=== PATIENT | female | born 1980 | race African-American/Black ===

== ENCOUNTER 2016-10-10 08:36 | Inpatient (IN) | payer MEDICAID ==
[2016-10-10 10:02] LABS: ABSOLUTE BASOPHILS # (AUTO) 0.1 10^3/uL (0.0-0.2); ABSOLUTE EOSINOPHILS # (AUTO) 0.4 10^3/uL (0.0-0.6); ABSOLUTE LYMPHOCYTES (AUTO) 2.3 10^3/uL (0.5-4.7); ABSOLUTE MONOCYTES (AUTO) 0.5 10^3/uL (0.1-1.4); ABSOLUTE NEUT (AUTO) 3.7 10^3/uL (1.7-8.2); BASOPHILS % (AUTO) 0.9 % (0-2); EOSINOPHILS % (AUTO) 5.8 % (0-6); HEMOGLOBIN 12.9 g/dL (12.0-15.5); HGB HCT DIFFERENCE -1.3; LYMPHOCYTES % (AUTO) 33.6 % (13-45); MEAN CORPUSCULAR HEMOGLOBIN 29.6 pg (27.0-33.4); MEAN CORPUSCULAR HGB CONC 32.2 g/dL (32.0-36.0); MEAN CORPUSCULAR VOLUME 92 fl (80-97); MONOCYTES % (AUTO) 7.2 % (3-13); RED BLOOD COUNT 4.36 10^6/uL (3.72-5.28); RED CELL DISTRIBUTION WIDTH 13.7 % (11.5-14.0); SEGMENTED NEUTROPHILS % (AUTO) 52.5 % (42-78)
[2016-10-10 10:11] LABS: ALANINE AMINOTRANSFERASE 30 U/L (9-52); ALBUMIN 4.5 g/dL (3.5-5.0); ALKALINE PHOSPHATASE 80 U/L (38-126); ANION GAP 13 (5-19); ASPARTATE AMINO TRANSFERASE 23 U/L (14-36); BILIRUBIN,DIRECT 0.2 mg/dL (0.0-0.4); BILIRUBIN,TOTAL 0.4 mg/dL (0.2-1.3); BLOOD UREA NITROGEN 11 mg/dL (7-20); CALCIUM 9.9 mg/dL (8.4-10.2); CARBON DIOXIDE 25 mmol/L (22-30); CHLORIDE 108 mmol/L (98-107); CREATININE RESULT 1.15 mg/dL (0.52-1.25); GLUCOSE 80 mg/dL (75-110); POTASSIUM 4.3 mmol/L (3.6-5.0); SODIUM 145.9 mmol/L (137-145); TOTAL PROTEIN 7.4 g/dL (6.3-8.2)
[2016-10-10 10:15] LABS: APPEARANCE,URINE CLOUDY; BILIRUBIN,URINE NEGATIVE (NEGATIVE); GLUCOSE, URINE NEGATIVE (NEGATIVE); KETONES,URINE NEGATIVE (NEGATIVE); LEUKOCYTE ESTERASE,URINE NEGATIVE (NEGATIVE); NITRITE,URINE POSITIVE (NEGATIVE); PROTEIN,URINE NEGATIVE (NEGATIVE); UROBILINOGEN,URINE NEGATIVE mg/dL (<2.0)
[2016-10-10 10:29] LABS: LIPASE 3239.1 U/L (23-300)
--- NOTE | 2016-10-10 10:45 | ER Document Report ---
ED Medical Screen (RME) - General Mode of Arrival: Ambulatory Information source: Patient TRAVEL OUTSIDE OF THE [place] IN LAST 30 DAYS: No <RIGO KLINE - Last Filed: 10/10/16 10:42> <MARCEL ROMERO - Last Filed: 10/11/16 10:23> - General Chief Complaint: Epigastric Pain Stated Complaint: HEADACHE/CHEST PAIN/COUGH Time Seen by Provider: 10/10/16 10:41 Notes: 36-year-old female presents to ED for chest pain and stomach pains 3-4 weeks. She states she has a headache off and on. States at times she feels like she has a knot in her throat. States she has been nauseated off and on but not vomiting. States she has had some diarrhea with 2 stools today. She denies any cardiac history any history of any abdominal problems. She does have a history of migraines. States she has had no fevers but she has had some chills during this episode. Patient is 145 lipase is 2239 liver enzymes are normal. Urine has positive nitrates with trace bacteria cloudy urine with specific gravity of 1.02. Will order abdominal ultrasound and has seen in the back by 1 of the physicians. I have greeted and performed a rapid initial assessment of this patient. A comprehensive ED assessment and evaluation of the patient, analysis of test results and completion of medical decision making process will be conducted by an additional ED providers. (RIGO KLINE) - Related Data Allergies/Adverse Reactions: No Known Allergies Allergy (Verified 10/10/16 08:38) Past Medical History Renal/ Medical History: Denies: Hx Peritoneal Dialysis Past Surgical History: Reports: Hx Tonsillectomy - Immunizations Immunizations up to date: Yes Hx Diphtheria, Pertussis, Tetanus Vaccination: Yes - 10/10/2011 <RIGO KLINE - Last Filed: 10/10/16 10:42> Course - Laboratory Result Diagrams: 10/10/16 09:25 10/10/16 09:25 <RIGO KLINE - Last Filed: 10/10/16 10:42> - Laboratory Result Diagrams: 10/11/16 04:38 10/11/16 04:38 <MARCEL ROMERO - Last Filed: 10/11/16 10:23> - Vital Signs Vital signs: Temp Pulse Resp BP Pulse Ox 98.3 F 64 12 108/56 L 97 10/11/16 08:00 10/11/16 08:00 10/11/16 08:00 10/11/16 08:00 10/11/16 08:00 - Laboratory Laboratory results interpreted by me: 10/10/16 10/10/16 10/10/16 09:25 09:25 09:30 Sodium 145.9 H Chloride 108 H Est GFR (Non-Af Amer) 53 L HDL Cholesterol 29 L Lipase 3239.1 H Urine Blood SMALL H Urine Nitrite POSITIVE H Doctor's Discharge <RIGO KLINE - Last Filed: 10/10/16 10:42> <MARCEL ROMERO - Last Filed: 10/11/16 10:23> - Discharge Clinical Impression: Acute pancreatitis Condition: Stable Disposition: ADMITTED INPATIENT
--- NOTE | 2016-10-10 12:37 | ER Document Report ---
ED GI/ - General Chief Complaint: Epigastric Pain Stated Complaint: HEADACHE/CHEST PAIN/COUGH Time Seen by Provider: 10/10/16 10:41 Mode of Arrival: Ambulatory Notes: The patient is a 36-year-old female, no past medical history, presents with intermittent epigastric pain for the past 2 weeks that is now constant today. She also is feeling lower right chest pain when her abdominal pain flares. She is not sure if there is a correlation with food and she has never had this before. In addition, she has a dull frontal headache and feels like there is a knot in her throat. Her headache feels similar to prior headaches. She is nauseous, but has not vomited. Denies urinary symptoms, fevers, shortness of breath, numbness, tingling, neck stiffness, blurry vision, ataxia, diarrhea or constipation TRAVEL OUTSIDE OF THE [place] IN LAST 30 DAYS: No - Related Data Allergies/Adverse Reactions: No Known Allergies Allergy (Verified 10/10/16 08:38) Past Medical History - General Information source: Patient - Social History Smoking Status: Current Every Day Smoker Chew tobacco use (# tins/day): - 30 Frequency of alcohol use: None Drug Abuse: None Family History: Reviewed & Not Pertinent Patient has suicidal ideation: No Patient has homicidal ideation: No Renal/ Medical History: Denies: Hx Peritoneal Dialysis Past Surgical History: Reports: Hx Tonsillectomy - Immunizations Immunizations up to date: Yes Hx Diphtheria, Pertussis, Tetanus Vaccination: Yes - 10/10/2011 Review of Systems - Review of Systems Notes: REVIEW OF SYSTEMS: CONSTITUTIONAL: -fevers, -chills EENT: -eye pain, -difficulty swallowing, -nasal congestion CARDIOVASCULAR: -chest pain, -syncope. RESPIRATORY: -cough, -SOB GASTROINTESTINAL: +abdominal pain, +nausea, -vomiting, -diarrhea GENITOURINARY: -dysuria, -hematuria MUSCULOSKELETAL: -back pain, -neck pain SKIN: -rash or skin lesions. HEMATOLOGIC: -easy bruising or bleeding. LYMPHATIC: -swollen, enlarged glands. NEUROLOGICAL: -altered mental status or loss of consciousness, -headache, - neurologic symptoms PSYCHIATRIC: -anxiety, -depression. ALL OTHER SYSTEMS REVIEWED AND NEGATIVE. Physical Exam - Vital signs Vitals: Temp Pulse Resp BP Pulse Ox 98.1 F 91 14 122/64 100 10/10/16 08:39 10/10/16 08:39 10/10/16 08:39 10/10/16 08:39 10/10/16 08:39 - Notes Notes: PHYSICAL EXAMINATION: GENERAL: Well-appearing, well-nourished and in no acute distress. HEAD: Atraumatic, normocephalic. EYES: Pupils equal round and reactive to light, extraocular movements intact, sclera anicteric, conjunctiva are normal. ENT: nares patent, oropharynx clear without exudates. Moist mucous membranes. NECK: Normal range of motion, supple without lymphadenopathy LUNGS: Breath sounds clear to auscultation bilaterally and equal. No wheezes rales or rhonchi. HEART: Regular rate and rhythm without murmurs ABDOMEN: Soft, moderate epigastric tenderness, normoactive bowel sounds. No guarding, no rebound. No masses appreciated. EXTREMITIES: Normal range of motion, no pitting or edema. No cyanosis. NEUROLOGICAL: Cranial nerves grossly intact. Normal speech, normal gait. Normal sensory, motor, and reflex exams. PSYCH: Normal mood, normal affect. SKIN: Warm, Dry, normal turgor, no rashes or lesions noted. Course - Re-evaluation Re-evalutation: Patient with epigastric pain and lipase around 4000. She does not drink alcohol and her right upper quadrant ultrasound does not show any evidence of gallstones. She has not seen a doctor in several years, so unsure about her triglycerides or cholesterol levels. Pain and nausea is under control with morphine and Zofran. Spoke to Dr. Peres at 1530 and will admit patient as inpatient to telemetry - Vital Signs Vital signs: Temp Pulse Resp BP Pulse Ox 98.1 F 91 14 122/64 100 10/10/16 08:39 10/10/16 08:39 10/10/16 08:39 10/10/16 08:39 10/10/16 08:39 - Laboratory Result Diagrams: 10/10/16 09:25 10/10/16 09:25 Laboratory results interpreted by me: 10/10/16 10/10/16 09:25 09:30 Sodium 145.9 H Chloride 108 H Est GFR (Non-Af Amer) 53 L Lipase 3239.1 H Urine Blood SMALL H Urine Nitrite POSITIVE H - Diagnostic Test Radiology reviewed: Image reviewed, Reports reviewed Radiology results interpreted by me: VALORIE US: NAD - EKG Interpretation by Me EKG shows normal: Sinus rhythm, [place], Intervals, QRS Complexes, ST-T Waves Discharge - Discharge Clinical Impression: Acute pancreatitis Qualifiers: Pancreatitis type: unspecified pancreatitis type Acute pancreatitis complication: unspecified Qualified Code(s): K85.90 - Acute pancreatitis without necrosis or infection, unspecified Condition: Stable Disposition: ADMITTED INPATIENT Admitting Provider: [facility] Admitted: Telemetry
[2016-10-10] MEDS ORDERED: NORMAL SALINE 1000 ML 1,000 ML IV ONE (12:50)
[2016-10-10] MEDS ORDERED: ONDANSETRON HCL INJ/PF 4 MG/2 ML SDV IV ONE (12:50)
[2016-10-10] MEDS ORDERED: MORPHINE SULFATE 10 MG/ML INJ IV ONE (12:50)
[2016-10-10] MEDS ORDERED: HYDROMORPHONE HCL INJ/PF 2 MG/ML AMPULE IV PRN (16:02)
[2016-10-10] MEDS ORDERED: DEXTROSE 5%-1/2 NORMAL SALINE 1,000 ML IV PRN (16:03)
[2016-10-10] MEDS ORDERED: ACETAMINOPHEN 325 MG TABLET PO PRN (16:03)
[2016-10-10] MEDS ORDERED: ONDANSETRON HCL INJ/PF 4 MG/2 ML SDV IV PRN (16:03)
[2016-10-10 16:29] LABS: CHOLESTEROL 128.75 mg/dL (0-200); Direct HDL 29 mg/dL (>40); TRIGLYCERIDES 80 mg/dL (<150)
[2016-10-10 16:40] LABS: DIRECT LDL 74 mg/dL (<100)
[2016-10-10 17:25] LABS: URINE BARBITURATES SCREEN NEGATIVE; URINE METHADONE SCREEN NEGATIVE; URINE OPIATES LOW NEGATIVE; URINE PHENCYCLIDINE SCREEN NEGATIVE
--- NOTE | 2016-10-10 17:48 | HISTORY AND PHYSICAL E ---
History and Physical NAME: CHELA STAPLETON : 1980 AGE: 36Y ADMITTED: 10/10/2016 ROOM: ED08 TIME OF ADMISSION: 1600 hours. TIME SPENT MANAGING PATIENT: Sixty minutes. PRIMARY CARE PROVIDER: None. CHIEF COMPLAINT: None. HISTORY OF PRESENT ILLNESS: This is a 36-year-old female with past medical history of PTSD and depression that presents to the hospital with a several-day history of abdominal pain. She has never had a prior history of pancreatitis but is diagnosed with acute pancreatitis in the emergency department. She denies alcohol use. She denies family history of pancreatitis or autoimmune condition. She denies drug use. She has never had prior bouts of pancreatitis but does have frequent episodes over the past several years, in which she gets abdominal pain almost on a monthly basis. PAST MEDICAL HISTORY: 1. PTSD. 2. Depression. PAST SURGICAL HISTORY: None. SOCIAL HISTORY: She does not drink, smoke, or use drugs reportedly. FAMILY HISTORY: Positive for diabetes, hypertension. Positive for brain and bone cancers. MEDICATIONS: 1. Rexulti. 2. Klonopin. ALLERGIES: No known drug allergies. CODE STATUS: FULL CODE STATUS. REVIEW OF SYSTEMS: She denies fevers, chills, weight loss, weight gain, fatigue, anorexia, visual disturbance, headache, hearing loss, dyspnea, cough, pleurisy, chest pain, edema, dysuria, urinary urgency, frequency, hematuria, rashes, wounds, joint pain, joint swelling, focal weakness, numbness, dizziness, dysphagia, dysarthria, ataxia, polyuria, polydipsia, hot or cold intolerance, depression, anxiety, hallucinations, delusions, bleeding, bruising. PHYSICAL EXAMINATION: VITAL SIGNS: Temperature 98.1. Blood pressure 122/64. Pulse 91. Respirations 14. GENERAL: She is alert, in no acute distress, obese. HEENT: Normocephalic. Sclera is nonicteric. Conjunctivae clear. Extraocular movements intact. Pupils equal, round, reactive to light and accommodation. Oropharynx has moist mucous membranes. NECK: Midline trachea. No thyromegaly. RESPIRATORY: Clear to auscultation. No wheeze or rhonchi. CARDIAC: Regular rate/rhythm. No murmurs, gallops, or rubs. ABDOMEN: Soft, obese, nonspecific mid-abdominal tenderness is noted with no guarding. Positive bowel sounds. EXTREMITIES: No edema, cyanosis, clubbing. MUSCULOSKELETAL: No joint swelling or deformity. VASCULAR: Good radial and dorsalis pedis pulses. NEUROLOGIC: She is alert. She is oriented to person, place, and time. Cranial nerves are intact. She has good strength and sensation in all 4 extremities. SKIN: No rashes or skin lesions. PSYCHIATRIC: Appropriate mood and affect. LABORATORIES: White blood cell count 7.0, hemoglobin 12.9, platelets 377,000. Sodium 145, potassium 4.3, chloride 108, bicarbonate 25, BUN 11, creatinine 0.15, glucose 80, calcium 9.9, total bilirubin 0.4, AST 23, ALT 30, alkaline phosphatase 80, albumin 4.5, lipase 3239. Urinalysis: Positive nitrite but only 1 white blood cell per high-powered field, trace bacteria. Cholesterol panel is pending. Right upper quadrant ultrasound is negative. EKG shows sinus rhythm, no acute ST or T-wave changes. ASSESSMENT AND PLAN: 1. Acute pancreatitis. The patient will be admitted to the hospital and placed on bowel rest, IV fluids, pain medication, antiemetics. Check lipid panel. I would like to check a CT scan of the abdomen and pelvis with contrast as well. The patient denies alcohol use. Right upper quadrant ultrasound is negative for gallstone. 2. PTSD/DEPRESSION. Verify home medications which should include and Klonopin and Rexulti then start these whenever we have dosages verified. DICTATING PHYSICIAN: SUSU JEONG M.D. [id number] PHY#: [id number] ID: [id number] JOB#: [id number] ACCT: [id number] cc:SUSU JEONG >
[2016-10-10] MEDS: PANTOPRAZOLE SODIUM 40 MG VIAL IV SCH (21:02)
[2016-10-11] MEDS: PANTOPRAZOLE SODIUM 40 MG VIAL IV SCH (05:09)
[2016-10-11 05:25] LABS: ABSOLUTE EOSINOPHILS # (AUTO) 0.4 10^3/uL (0.0-0.6); ABSOLUTE LYMPHOCYTES (AUTO) 2.1 10^3/uL (0.5-4.7); ABSOLUTE MONOCYTES (AUTO) 0.5 10^3/uL (0.1-1.4); BASOPHILS % (AUTO) 0.8 % (0-2); EOSINOPHILS % (AUTO) 7.4 % (0-6); HEMATOCRIT 36.6 % (36.0-47.0); HEMOGLOBIN 12.1 g/dL (12.0-15.5); HGB HCT DIFFERENCE -0.3; LYMPHOCYTES % (AUTO) 42.2 % (13-45); MEAN CORPUSCULAR HEMOGLOBIN 29.7 pg (27.0-33.4); MEAN CORPUSCULAR HGB CONC 33.2 g/dL (32.0-36.0); MEAN CORPUSCULAR VOLUME 90 fl (80-97); MONOCYTES % (AUTO) 9.4 % (3-13); RED BLOOD COUNT 4.08 10^6/uL (3.72-5.28); RED CELL DISTRIBUTION WIDTH 13.5 % (11.5-14.0); SEGMENTED NEUTROPHILS % (AUTO) 40.2 % (42-78)
[2016-10-11 05:36] LABS: ANION GAP 8 (5-19); BLOOD UREA NITROGEN 8 mg/dL (7-20); CARBON DIOXIDE 25 mmol/L (22-30); CHLORIDE 110 mmol/L (98-107); CREATININE RESULT 1.14 mg/dL (0.52-1.25); GLUCOSE 113 mg/dL (75-110); LIPASE 108.9 U/L (23-300); POTASSIUM 4.1 mmol/L (3.6-5.0); SODIUM 142.5 mmol/L (137-145)
[2016-10-11] MEDS ORDERED: ENOXAPARIN SODIUM INJ 40 MG/0.4 ML DISP.SYRIN SUBCUT SCH (08:00)
--- NOTE | 2016-10-11 15:06 | PDOC DISCHARGE SUMMARY ---
General - Admit/Disc Date/PCP Admission Date/Primary Care Provider: 10/10/16 16:04 Discharge Date: 10/11/16 - Discharge Diagnosis (1) Acute pancreatitis Is this a current diagnosis for this admission?: YesSummary: Lipase resolved to normal overnight. Patient tolerated regular diet without nausea or abdominal pain. She has no signs of gallstone on CT or ultrasound of her abdomen. (2) Depression Is this a current diagnosis for this admission?: YesSummary: Continue home medications (3) Anxiety Is this a current diagnosis for this admission?: YesSummary: Continue home meds - Additional Information Resuscitation Status: Full Code Discharge Diet: Regular Discharge Activity: Activity As Tolerated Home Medications: Buspirone HCl [Buspar 10 mg Tablet] 10 mg PO Q8 10/10/16 Citalopram Hydrobromide [Celexa 40 mg Tablet] 40 mg PO DAILY 10/10/16 Clonazepam [Klonopin] 0.5 mg PO Q12 10/10/16 History of Present Illness Patient complains of: Abdominal pain and nausea History of Present Illness: The patient is a 36-year-old female, no past medical history, presents with intermittent epigastric pain for the past 2 weeks that is now constant today. She also is feeling lower right chest pain when her abdominal pain flares. She is not sure if there is a correlation with food and she has never had this before. In addition, she has a dull frontal headache and feels like there is a knot in her throat. Her headache feels similar to prior headaches. She is nauseous, but has not vomited. Denies urinary symptoms, fevers, shortness of breath, numbness, tingling, neck stiffness, blurry vision, ataxia, diarrhea or constipation Hospital Course Hospital Course: She was kept n.p.o. overnight. Patient was admitted to the hospitalist service on telemetry. She was given IV hydration. She had improvement in her pain with as needed analgesics. This morning her lipase is normalized. She was given a regular diet. She tolerated eating without any nausea or abdominal pain. This afternoon she states she would like to go home as she is feeling much better. Physical Exam Vital Signs: Temp Pulse Resp BP Pulse Ox 97.4 F 68 16 115/66 99 10/11/16 11:47 10/11/16 14:00 10/11/16 11:47 10/11/16 11:47 10/11/16 11:47 Intake & Output 10/10/16 10/11/16 10/12/16 06:59 06:59 06:59 Intake Total 1924 240 Balance 1924 240 Weight 86.5 kg General appearance: PRESENT: no acute distress, obese, well-developed, well- nourished Head exam: PRESENT: atraumatic, normocephalic Eye exam: PRESENT: conjunctiva pink, EOMI, PERRLA. ABSENT: scleral icterus Ear exam: PRESENT: normal external ear exam Mouth exam: PRESENT: moist, tongue midline Neck exam: ABSENT: carotid bruit, JVD, lymphadenopathy, thyromegaly Respiratory exam: PRESENT: clear to auscultation reji. ABSENT: rales, rhonchi, wheezes Cardiovascular exam: PRESENT: RRR. ABSENT: diastolic murmur, rubs, systolic murmur Pulses: PRESENT: normal dorsalis pedis pul Vascular exam: PRESENT: normal capillary refill GI/Abdominal exam: PRESENT: normal bowel sounds, soft. ABSENT: distended, guarding, mass, organolmegaly, rebound, tenderness Rectal exam: PRESENT: deferred Extremities exam: PRESENT: full ROM. ABSENT: calf tenderness, clubbing, pedal edema Neurological exam: PRESENT: alert, awake, oriented to person, oriented to place , oriented to time, oriented to situation, CN II-XII grossly intact. ABSENT: motor sensory deficit Psychiatric exam: PRESENT: appropriate affect, normal mood. ABSENT: homicidal ideation, suicidal ideation Skin exam: PRESENT: dry, intact, warm. ABSENT: cyanosis, rash Results Laboratory Results: 10/11/16 04:38 10/11/16 04:38 10/11/16 10/11/16 10/11/16 04:38 04:38 04:38 WBC 5.0 RBC 4.08 Hgb 12.1 Hct 36.6 MCV 90 MCH 29.7 MCHC 33.2 RDW 13.5 Plt Count 299 Seg Neutrophils % 40.2 L Lymphocytes % 42.2 Monocytes % 9.4 Eosinophils % 7.4 H Basophils % 0.8 Absolute Neutrophils 2.0 Absolute Lymphocytes 2.1 Absolute Monocytes 0.5 Absolute Eosinophils 0.4 Absolute Basophils 0.0 Sodium 142.5 Potassium 4.1 Chloride 110 H Carbon Dioxide 25 Anion Gap 8 BUN 8 Creatinine 1.14 Est GFR ( Amer) > 60 Est GFR (Non-Af Amer) 54 L Glucose 113 H Calcium 9.0 Magnesium 2.0 Lipase 108.9 TSH 2.04 Impressions: Abdomen/Pelvis CT 10/10/16 00:00 IMPRESSION: NO SIGNIFICANT OR ACUTE FINDING IN THE ABDOMEN OR PELVIS ON CT SCAN WITH IV CONTRAST. Abdomen Ultrasound 10/10/16 10:45 IMPRESSION: NORMAL RIGHT UPPER QUADRANT ULTRASOUND. Qualifiers PATEINT BEING DISCHARGED WITH ANY OF THE FOLLOWING DIAGNOSIS?: No Plan Discharge Plan: Home with family Time Spent: Less than 30 Minutes
[2016-10-11 15:51] VITALS: BP 125/53
--- NOTE | 2016-10-11 17:49 | EKG REPORT ---
SEVERITY:- NORMAL ECG - SINUS RHYTHM : Confirmed by: Chel Wright MD 11-Oct-2016 17:49:01
[2016-10-12] MEDS ORDERED: LANSOPRAZOLE 30 MG TAB.RAP.DR PO SCH (08:00)
== END 2016-10-11 16:12 | disposition home or self-care (01) | DRG 440 ==
LOC: ER 08:36 → EH 16:04 → UNDOADMIN 16:13 → 4S 19:46
DX: K85.90 Acute pancreatitis without necrosis or infection, unspecified (principal); F32.9 Major depressive disorder, single episode, unspecified; F41.9 Anxiety disorder, unspecified; F43.10 Post-traumatic stress disorder, unspecified; E66.9 Obesity, unspecified; Z68.30 Body mass index [BMI] 30.0-30.9, adult; Z83.3 Family history of diabetes mellitus; Z82.49 Family history of ischemic heart disease and other diseases of the circulatory system; Z80.8 Family history of malignant neoplasm of other organs or systems
CPT/HCPCS: 36415; 74177; 76705; 80048; 80053; 80061; 80307; 81001; 81025; 83690; 83735; 84443; 85025; 93005; 93010; 93976; 96361; 96374; 96375; 99285; J2270; J2405; J3490; J7030; S0164

== ENCOUNTER 2016-10-13 13:57 | Emergency (ER) | payer MEDICAID ==
--- NOTE | 2016-10-13 15:41 | ER Document Report ---
ED GI/ - General Chief Complaint: Abdominal Pain Stated Complaint: NAUSEA Time Seen by Provider: 10/13/16 15:38 Mode of Arrival: Ambulatory Information source: Patient Notes: pt states she was just discharged from here 2 days ago for pancreatitis.Pt c/o epigastric pain with nausea and vomitingx 1 today. Pt denies any fever. Pt reports diarrhea yesterday. Pt c/o chills. pt was advised that if she had continued upper abdominal pain that she should return for reevaluation. Patient denies any alcohol use. TRAVEL OUTSIDE OF THE [place] IN LAST 30 DAYS: No - HPI Patient complains to provider of: Abdominal pain, Diarrhea, Vomiting Onset: Other - 3 days Timing/Duration: Persistent Pain Level: 4 Location: Epigastric Vaginal bleeding (Compared to normal period): None Associated symptoms: Diarrhea, Nausea, Vomiting. denies: Fever, Loss of appetite, Urinary hesitancy, Urinary frequency, Vaginal discharge Exacerbated by: Denies Relieved by: Denies Similar symptoms previously: Yes Recently seen / treated by doctor: Yes - Related Data Allergies/Adverse Reactions: No Known Allergies Allergy (Verified 10/13/16 14:39) Past Medical History - General Information source: Patient - Social History Smoking Status: Current Every Day Smoker Frequency of alcohol use: None Drug Abuse: None Occupation: prepared foods production team member Family History: Reviewed & Not Pertinent Patient has suicidal ideation: No Patient has homicidal ideation: No Neurological Medical History: Reports: Hx Migraine Renal/ Medical History: Denies: Hx Peritoneal Dialysis GI Medical History: Reports: Other - pancreatitis Psychiatric Medical History: Reports: Hx Depression Past Surgical History: Reports: Hx Tonsillectomy - Immunizations Immunizations up to date: Yes Hx Diphtheria, Pertussis, Tetanus Vaccination: Yes - 10/10/2011 Review of Systems - Review of Systems Constitutional: No symptoms reported. denies: Fever EENT: No symptoms reported Cardiovascular: No symptoms reported. denies: Chest pain Respiratory: No symptoms reported. denies: Cough, Short of breath Gastrointestinal: Abdominal pain, Diarrhea, Nausea, Vomiting Genitourinary: No symptoms reported. denies: Dysuria, Flank pain Female Genitourinary: No symptoms reported. denies: Musculoskeletal: No symptoms reported. denies: Back pain Skin: No symptoms reported Hematologic/Lymphatic: No symptoms reported Neurological/Psychological: No symptoms reported Physical Exam - Vital signs Vitals: Temp Pulse Resp BP Pulse Ox 98.7 F 69 16 139/69 H 100 10/13/16 14:39 10/13/16 14:39 10/13/16 14:39 10/13/16 14:39 10/13/16 14:39 - General General appearance: Appears well, Alert In distress: None - HEENT Head: Normocephalic, Atraumatic Eyes: Normal Conjunctiva: Normal Nasal: Normal Mouth/Lips: Normal Neck: Normal, Supple. No: Lymphadenopathy - Respiratory Respiratory status: No respiratory distress Chest status: Nontender Breath sounds: Normal. No: Nonproductive cough Chest palpation: Normal - Cardiovascular Rhythm: Regular Heart sounds: S1 appreciated, S2 appreciated Murmur: No - Abdominal Inspection: Normal Distension: No distension Bowel sounds: Normal Tenderness: Tender - epigastric Organomegaly: No organomegaly - Back Back: Normal, Nontender. No: CVA tenderness - Extremities General upper extremity: Normal inspection, Normal ROM General lower extremity: Normal inspection, Normal ROM - Neurological Neuro grossly intact: Yes Cognition: Normal Danis Coma Scale Eye Opening: Spontaneous Danis Coma Scale Verbal: Oriented [place] Coma Scale Motor: Obeys Commands Danis Coma Scale Total: 15 - Psychological Associated symptoms: Normal affect, Normal mood - Skin Skin Temperature: Warm Skin Moisture: Dry Skin Color: Normal Course - Re-evaluation Re-evalutation: 10/13/16 17:[address] Baron regarding patient presentation and diagnostic test results. Does not recommend treating patients urinalysis result. Does recommend giving IV fluids and treating epigastric pain. No additional testing advised. Pt updated regarding plan of care. RN advised of new orders. - Vital Signs Vital signs: Temp Pulse Resp BP Pulse Ox 98.7 F 69 16 139/69 H 100 10/13/16 14:39 10/13/16 14:39 10/13/16 14:39 10/13/16 14:39 10/13/16 14:39 - Laboratory Result Diagrams: 10/13/16 16:11 10/13/16 16:11 Laboratory results interpreted by me: 10/13/16 10/13/16 16:11 16:11 Creatinine 1.30 H Est GFR ( Amer) 56 L Est GFR (Non-Af Amer) 46 L Urine Protein 30 H Urine Ketones TRACE H Urine Nitrite POSITIVE H reviewed pt's labs from recent admission 10/13/16 19:17 Labs- Entire Visit 10/13/16 10/13/16 10/13/16 16:11 16:11 16:11 WBC 6.8 RBC 4.35 Hgb 13.2 Hct 39.3 MCV 90 MCH 30.3 MCHC 33.5 RDW 13.8 Plt Count 370 Seg Neutrophils % 49.8 Lymphocytes % 37.0 Monocytes % 7.7 Eosinophils % 4.9 Basophils % 0.6 Absolute Neutrophils 3.4 Absolute Lymphocytes 2.5 Absolute Monocytes 0.5 Absolute Eosinophils 0.3 Absolute Basophils 0.0 Sodium 144.1 Potassium 4.6 Chloride 107 Carbon Dioxide 26 Anion Gap 11 BUN 12 Creatinine 1.30 H Est GFR ( Amer) 56 L Est GFR (Non-Af Amer) 46 L Glucose 92 Calcium 10.1 Total Bilirubin 0.5 Direct Bilirubin 0.4 Indirect Bilirubin Not Reportable Neonat Total Bilirubin Not Reportable AST 20 ALT 24 Alkaline Phosphatase 89 Total Protein 7.8 Albumin 4.5 Lipase 213.2 Serum HCG, Qual NEGATIVE Urine Color Urine Appearance Urine pH Ur Specific [place] Urine Protein Urine Glucose (UA) Urine Ketones Urine Blood Urine Nitrite Urine Bilirubin Urine Urobilinogen Ur Leukocyte Esterase Urine WBC (Auto) Urine RBC (Auto) Urine Bacteria (Auto) Squamous Epi Cells Auto Urine Mucus (Auto) Urine Ascorbic Acid 10/13/16 16:11 WBC RBC Hgb Hct MCV MCH MCHC RDW Plt Count Seg Neutrophils % Lymphocytes % Monocytes % Eosinophils % Basophils % Absolute Neutrophils Absolute Lymphocytes Absolute Monocytes Absolute Eosinophils Absolute Basophils Sodium Potassium Chloride Carbon Dioxide Anion Gap BUN Creatinine Est GFR ( Amer) Est GFR (Non-Af Amer) Glucose Calcium Total Bilirubin Direct Bilirubin Indirect Bilirubin Neonat Total Bilirubin AST ALT Alkaline Phosphatase Total Protein Albumin Lipase Serum HCG, Qual Urine Color YELLOW Urine Appearance SLIGHTLY-CLOUDY Urine pH 5.0 Ur Specific [place] 1.030 Urine Protein 30 H Urine Glucose (UA) NEGATIVE Urine Ketones TRACE H Urine Blood NEGATIVE Urine Nitrite POSITIVE H Urine Bilirubin NEGATIVE Urine Urobilinogen NEGATIVE Ur Leukocyte Esterase NEGATIVE Urine WBC (Auto) 2 Urine RBC (Auto) 1 Urine Bacteria (Auto) 3+ Squamous Epi Cells Auto 3 Urine Mucus (Auto) MOD Urine Ascorbic Acid NEGATIVE - Diagnostic Test Radiology reviewed: Reports reviewed - reviewed pt's US and Ct report from most recent admission Discharge - Discharge Clinical Impression: Epigastric pain, Dehydration, Abnormal renal function test Condition: Stable Disposition: HOME, SELF-CARE Instructions: Abdominal Pain ([facility]), Dehydration ([facility]), Reflux Disease (GERD) ( [facility]) Additional Instructions: Return immediately for any new or worsening symptoms Followup with your primary care provider, call tomorrow to make a followup appointment Follow up with a sawing and assembly supervisor for a recheck, call tomorrow for an appointment Increase oral fluids Your renal function test was abnormal today, recheck with a primary care provider to have this test rechecked this week. Prescriptions: Omeprazole Magnesium [Prilosec Otc] 20 mg PO DAILY #15 tablet. Sucralfate [Carafate 1 gm Tablet] 1 gm PO ACHS #60 tablet Forms: Return to Work Referrals: [facility] [Provider Group] - Follow up as needed [facility] [Provider Group] - Follow up in 3-5 days
--- NOTE | 2016-10-13 16:35 | RADIOLOGY REPORT (SQ) ---
EXAM DESCRIPTION: CHEST PA/LAT COMPLETED DATE/TIME: 10/13/2016 4:26 pm REASON FOR STUDY: epig pain COMPARISON: 12/27/2012. EXAM PARAMETERS: NUMBER OF VIEWS: two views TECHNIQUE: Digital Frontal and Lateral radiographic views of the chest acquired. RADIATION DOSE: NA LIMITATIONS: none FINDINGS: LUNGS AND PLEURA: No opacities, masses or pneumothorax. No pleural effusion. MEDIASTINUM AND HILAR STRUCTURES: No masses or contour abnormalities. HEART AND VASCULAR STRUCTURES: Heart normal size. No evidence for failure. BONES: No acute findings. HARDWARE: None in the chest. OTHER: No other significant finding. IMPRESSION: NO SIGNIFICANT RADIOGRAPHIC FINDING IN THE CHEST. TECHNICAL DOCUMENTATION: JOB ID: [id number] [employer]- All Rights Reserved
[2016-10-13 16:45] LABS: ABSOLUTE EOSINOPHILS # (AUTO) 0.3 10^3/uL (0.0-0.6); ABSOLUTE LYMPHOCYTES (AUTO) 2.5 10^3/uL (0.5-4.7); ABSOLUTE MONOCYTES (AUTO) 0.5 10^3/uL (0.1-1.4); ABSOLUTE NEUT (AUTO) 3.4 10^3/uL (1.7-8.2); BASOPHILS % (AUTO) 0.6 % (0-2); EOSINOPHILS % (AUTO) 4.9 % (0-6); HEMATOCRIT 39.3 % (36.0-47.0); HEMOGLOBIN 13.2 g/dL (12.0-15.5); HGB HCT DIFFERENCE 0.3; MEAN CORPUSCULAR HEMOGLOBIN 30.3 pg (27.0-33.4); MEAN CORPUSCULAR HGB CONC 33.5 g/dL (32.0-36.0); MEAN CORPUSCULAR VOLUME 90 fl (80-97); MONOCYTES % (AUTO) 7.7 % (3-13); RED BLOOD COUNT 4.35 10^6/uL (3.72-5.28); RED CELL DISTRIBUTION WIDTH 13.8 % (11.5-14.0); SEGMENTED NEUTROPHILS % (AUTO) 49.8 % (42-78); WHITE BLOOD COUNT 6.8 10^3/uL (4.0-10.5)
[2016-10-13 16:46] LABS: APPEARANCE,URINE SLIGHTLY-CLOUDY; BILIRUBIN,URINE NEGATIVE (NEGATIVE); GLUCOSE, URINE NEGATIVE (NEGATIVE); KETONES,URINE TRACE mg/dL (NEGATIVE); LEUKOCYTE ESTERASE,URINE NEGATIVE (NEGATIVE); NITRITE,URINE POSITIVE (NEGATIVE); PROTEIN,URINE 30 mg/dL (NEGATIVE); UROBILINOGEN,URINE NEGATIVE mg/dL (<2.0)
[2016-10-13 17:13] LABS: ALANINE AMINOTRANSFERASE 24 U/L (9-52); ALBUMIN 4.5 g/dL (3.5-5.0); ALKALINE PHOSPHATASE 89 U/L (38-126); ANION GAP 11 (5-19); ASPARTATE AMINO TRANSFERASE 20 U/L (14-36); BILIRUBIN,DIRECT 0.4 mg/dL (0.0-0.4); BILIRUBIN,TOTAL 0.5 mg/dL (0.2-1.3); BLOOD UREA NITROGEN 12 mg/dL (7-20); CALCIUM 10.1 mg/dL (8.4-10.2); CARBON DIOXIDE 26 mmol/L (22-30); CHLORIDE 107 mmol/L (98-107); GLUCOSE 92 mg/dL (75-110); LIPASE 213.2 U/L (23-300); POTASSIUM 4.6 mmol/L (3.6-5.0); SODIUM 144.1 mmol/L (137-145); TOTAL PROTEIN 7.8 g/dL (6.3-8.2)
[2016-10-13] MEDS ORDERED: NORMAL SALINE 1000 ML 1,000 ML IV ONE (17:27)
[2016-10-13] MEDS ORDERED: FAMOTIDINE 20 MG TABLET PO ONE (17:31)
[2016-10-13] MEDS ORDERED: SUCRALFATE SUSP 1 GM/10 ML UDCUP PO ONE (17:31)
--- NOTE | 2016-10-13 18:42 | EKG REPORT ---
SEVERITY:- NORMAL ECG - SINUS RHYTHM : Confirmed by: Mayco Mcmillan MD 13-Oct-2016 18:41:55
[2016-10-13 19:30] VITALS: BP 134/90
== END 2016-10-13 19:30 | disposition home or self-care (01) ==
LOC: ER 13:57
DX: R10.13 Epigastric pain (principal); E86.0 Dehydration; R94.4 Abnormal results of kidney function studies; R11.2 Nausea with vomiting, unspecified; R19.7 Diarrhea, unspecified; F17.200 Nicotine dependence, unspecified, uncomplicated
CPT/HCPCS: 93005; 99284; 96360; 36415; 83690; 84703; 85025; 80053; 81001; 71020; 93010; J3490 ×2; J7030

== ENCOUNTER 2017-07-04 10:07 | Emergency (ER) | payer OTHER, MEDICAID ==
[2017-07-04] MEDS ORDERED: ASPIRIN 81 MG TABLET, CHEWABLE PO ONE (10:35)
[2017-07-04] MEDS ORDERED: HYDROCODONE/ACETAMINOPHEN 5-325 MG TABLET PO ONE (10:45)
--- NOTE | 2017-07-04 10:46 | ER Document Report ---
ED Cardiac - General Chief Complaint: Rib Pain Stated Complaint: BREATHING DIFFICULTY Time Seen by Provider: 07/04/17 10:27 Mode of Arrival: Ambulatory Information source: Patient Notes: Patient presents complaining of chest pain in dyspnea that started around 2:00 this morning. Patient states pain is been persistent. Patient denies any cough or cold symptoms. Patient denies any nausea or vomiting. Patient complains of pain to left side of chest under her breast into the anterior chest area. Patient denies any history of heart problems or any significant family medical history. Patient denies any recent travel, bedrest remobilization. Patient denies any recent surgeries. No history of PE or DVT. Patient denies any leg pain or swelling. TRAVEL OUTSIDE OF THE [place] IN LAST 30 DAYS: No - HPI Patient complains to provider of: Chest pain, Shortness of breath Chest pain location: Under breast Quality of pain: Constant Pain level currently: 3 Chest pain precipitating factors: At Rest Cardiac risk factors: Smoker. denies: Diabetes, Hypertension, + Family history , Dyslipidemia, Hx CHF, Hx AR Associated symptoms: Shortness of breath. denies: Abdominal pain, Back pain, Dizziness, Nausea/vomiting, Neck pain Exacerbated by: Denies Relieved by: Nothing Similar symptoms previously: No Recently seen / treated by doctor: No - Related Data Allergies/Adverse Reactions: No Known Allergies Allergy (Verified 10/13/16 14:39) Past Medical History - General Information source: Patient - Social History Smoking Status: Current Every Day Smoker Smoking Education Provided: Yes Frequency of alcohol use: None Drug Abuse: None Occupation: skilled nursing Lives with: Family Family History: Reviewed & Not Pertinent Neurological Medical History: Reports: Hx Migraine Renal/ Medical History: Denies: Hx Peritoneal Dialysis GI Medical History: Reports: Other - Pancreatitis Psychiatric Medical History: Reports: Hx Anxiety, Hx Depression Past Surgical History: Reports: Hx Tonsillectomy - Immunizations Immunizations up to date: Yes Hx Diphtheria, Pertussis, Tetanus Vaccination: Yes - 10/10/2011 Review of Systems - Review of Systems Constitutional: No symptoms reported. denies: Fever, Recent illness EENT: No symptoms reported Cardiovascular: Chest pain. denies: Lightheaded Respiratory: Short of breath. denies: Cough Gastrointestinal: No symptoms reported. denies: Abdominal pain, Diarrhea, Nausea, Vomiting Genitourinary: No symptoms reported Female Genitourinary: No symptoms reported Musculoskeletal: No symptoms reported. denies: Back pain Skin: No symptoms reported Hematologic/Lymphatic: No symptoms reported Neurological/Psychological: No symptoms reported Physical Exam - Vital signs Vitals: Temp Pulse Resp BP Pulse Ox 98.2 F 74 16 122/75 100 07/04/17 10:11 07/04/17 10:11 07/04/17 10:11 07/04/17 10:11 07/04/17 10:11 - General General appearance: Appears well, Alert In distress: None - HEENT Head: Normocephalic, Atraumatic Eyes: Normal Conjunctiva: Normal Nasal: Normal Mouth/Lips: Normal Mucous membranes: Normal Neck: Normal, Supple. No: Lymphadenopathy - Respiratory Respiratory status: No respiratory distress Chest status: Pain on movement, Pain with deep breathing Breath sounds: Normal Chest palpation: Tender - Left anterior chest wall tenderness with palpation. No: Subcutaneous emphysema - Cardiovascular Rhythm: Regular Heart sounds: S1 appreciated, S2 appreciated Murmur: No - Abdominal Inspection: Obese Distension: No distension Bowel sounds: Normal Tenderness: Nontender Organomegaly: No organomegaly - Back Back: Normal, Nontender. No: CVA tenderness, Vertebra tenderness - Extremities General upper extremity: Normal inspection, Normal ROM. No: Edema General lower extremity: Normal inspection, Normal ROM. No: Edema Calf: Normal, Nontender - Neurological Neuro grossly intact: Yes Cognition: Normal [place] Coma Scale Eye Opening: Spontaneous [place] Coma Scale Verbal: Oriented [place] Coma Scale Motor: Obeys Commands [place] Coma Scale Total: 15 - Psychological Associated symptoms: Normal affect, Normal mood - Skin Skin Temperature: Warm Skin Moisture: Dry Skin Color: Normal Course - Re-evaluation Re-evalutation: 07/04/17 13:02 Patient reports that pain is improved after medication. Patient without any objective dyspnea symptoms. Discussed results of patient's diagnostic tests with her. No concern for PE, pneumonia or AR at this time. Patient with a heart score of 1 and PERC negative with negative d-dimer. The patient has atypical chest pain as the patient's chest pain is not suggestive of pulmonary embolus, cardiac ischemia, aortic dissection, or other serious etiology. Given the extremely low risk of these diagnoses for the test in evaluation for these possibilities does not appear to be indicated at this time. Patient has been instructed to return if the symptoms worsen or change in any way. 07/04/17 13:05 - Vital Signs Vital signs: Temp Pulse Resp BP Pulse Ox 98.2 F 67 18 106/71 100 07/04/17 10:11 07/04/17 13:14 07/04/17 13:14 07/04/17 13:14 07/04/17 13:14 - Laboratory Result Diagrams: 07/04/17 11:27 07/04/17 11:27 Laboratory results interpreted by me: 07/04/17 07/04/17 07/04/17 11:27 11:27 11:27 Eosinophils % 10.4 H Creatine Kinase 431 H Urine Blood SMALL H Labs- Entire Visit 07/04/17 07/04/17 07/04/17 11:27 11:27 11:27 WBC 5.9 RBC 4.26 Hgb 12.8 Hct 38.9 MCV 91 MCH 30.1 MCHC 33.0 RDW 13.8 Plt Count 416 Seg Neutrophils % 43.8 Lymphocytes % 38.3 Monocytes % 7.0 Eosinophils % 10.4 H Basophils % 0.5 Absolute Neutrophils 2.6 Absolute Lymphocytes 2.3 Absolute Monocytes 0.4 Absolute Eosinophils 0.6 Absolute Basophils 0.0 D-Dimer Sodium 144.9 Potassium 4.3 Chloride 107 Carbon Dioxide 28 Anion Gap 10 BUN 9 Creatinine 1.02 Est GFR ( Amer) > 60 Est GFR (Non-Af Amer) > 60 Glucose 95 Calcium 9.8 Total Bilirubin 0.3 Direct Bilirubin 0.3 Neonat Total Bilirubin Not Reportable Neonat Direct Bilirubin Not Reportable Neonat Indirect Bili Not Reportable AST 22 ALT 23 Alkaline Phosphatase 81 Creatine Kinase 431 H CK-MB (CK-2) 0.90 Troponin I < 0.012 Total Protein 7.1 Albumin 4.3 Serum HCG, Qual Urine Color Urine Appearance Urine pH Ur Specific [place] Urine Protein Urine Glucose (UA) Urine Ketones Urine Blood Urine Nitrite Urine Bilirubin Urine Urobilinogen Ur Leukocyte Esterase Urine WBC (Auto) Urine RBC (Auto) Squamous Epi Cells Auto Urine Mucus (Auto) Urine Ascorbic Acid 07/04/17 07/04/17 07/04/17 11:27 11:27 11:27 WBC RBC Hgb Hct MCV MCH MCHC RDW Plt Count Seg Neutrophils % Lymphocytes % Monocytes % Eosinophils % Basophils % Absolute Neutrophils Absolute Lymphocytes Absolute Monocytes Absolute Eosinophils Absolute Basophils D-Dimer < 0.27 Sodium Potassium Chloride Carbon Dioxide Anion Gap BUN Creatinine Est GFR ( Amer) Est GFR (Non-Af Amer) Glucose Calcium Total Bilirubin Direct Bilirubin Neonat Total Bilirubin Neonat Direct Bilirubin Neonat Indirect Bili AST ALT Alkaline Phosphatase Creatine Kinase CK-MB (CK-2) Troponin I Total Protein Albumin Serum HCG, Qual NEGATIVE Urine Color YELLOW Urine Appearance SLIGHTLY-CLOUDY Urine pH 6.0 Ur Specific [place] 1.016 Urine Protein NEGATIVE Urine Glucose (UA) NEGATIVE Urine Ketones NEGATIVE Urine Blood SMALL H Urine Nitrite NEGATIVE Urine Bilirubin NEGATIVE Urine Urobilinogen NEGATIVE Ur Leukocyte Esterase NEGATIVE Urine WBC (Auto) 1 Urine RBC (Auto) 1 Squamous Epi Cells Auto 5 Urine Mucus (Auto) RARE Urine Ascorbic Acid NEGATIVE - Diagnostic Test Radiology reviewed: Reports reviewed - EKG Interpretation by Me EKG shows normal: Sinus rhythm Rate: Normal Discharge - Discharge Clinical Impression: Chest pain Qualifiers: Chest pain type: unspecified Qualified Code(s): R07.9 - Chest pain, unspecified Dyspnea Qualifiers: Dyspnea type: unspecified Qualified Code(s): R06.00 - Dyspnea, unspecified Condition: Stable Disposition: HOME, SELF-CARE Instructions: Chest Wall Pain ([facility]), Chest Pain of Unclear Cause ([facility]), Dyspnea , Nonspecific ([facility]) Additional Instructions: Return immediately for any new or worsening symptoms Followup with your primary care provider, call tomorrow to make a followup appointment Follow-up with a animal care taker for recheck Stop smoking Prescriptions: Naproxen [Naprosyn 250 Nmg Tablet] 1 tab PO BID #14 tablet Forms: Smoking Cessation Education, Return to Work Referrals: [facility] [Provider Group] - Follow up as needed [facility] [Provider Group] - Follow up as needed ETHEL DAMON MD [ACTIVE STAFF] - Follow up as needed
--- NOTE | 2017-07-04 11:09 | RADIOLOGY REPORT (SQ) ---
EXAM DESCRIPTION: CHEST PA/LAT COMPLETED DATE/TIME: 07/04/2017 10:57 am REASON FOR STUDY: cp COMPARISON: 10/13/2016. EXAM PARAMETERS: NUMBER OF VIEWS: two views TECHNIQUE: Digital Frontal and Lateral radiographic views of the chest acquired. RADIATION DOSE: NA LIMITATIONS: none FINDINGS: LUNGS AND PLEURA: No opacities, masses or pneumothorax. No pleural effusion. MEDIASTINUM AND HILAR STRUCTURES: No masses or contour abnormalities. HEART AND VASCULAR STRUCTURES: Heart normal size. No evidence for failure. BONES: No acute findings. HARDWARE: None in the chest. OTHER: No other significant finding. IMPRESSION: NO SIGNIFICANT RADIOGRAPHIC FINDING IN THE CHEST. TECHNICAL DOCUMENTATION: JOB ID: [id number] [employer]- All Rights Reserved
[2017-07-04 12:01] LABS: ABSOLUTE EOSINOPHILS # (AUTO) 0.6 10^3/uL (0.0-0.6); ABSOLUTE LYMPHOCYTES (AUTO) 2.3 10^3/uL (0.5-4.7); ABSOLUTE MONOCYTES (AUTO) 0.4 10^3/uL (0.1-1.4); ABSOLUTE NEUT (AUTO) 2.6 10^3/uL (1.7-8.2); BASOPHILS % (AUTO) 0.5 % (0-2); EOSINOPHILS % (AUTO) 10.4 % (0-6); HEMATOCRIT 38.9 % (36.0-47.0); HEMOGLOBIN 12.8 g/dL (12.0-15.5); LYMPHOCYTES % (AUTO) 38.3 % (13-45); MEAN CORPUSCULAR HEMOGLOBIN 30.1 pg (27.0-33.4); MEAN CORPUSCULAR VOLUME 91 fl (80-97); PLATELET COUNT 416 10^3/uL (150-450); RED BLOOD COUNT 4.26 10^6/uL (3.72-5.28); RED CELL DISTRIBUTION WIDTH 13.8 % (11.5-14.0); SEGMENTED NEUTROPHILS % (AUTO) 43.8 % (42-78); TOTAL CELLS COUNTED % (AUTO) 100 %; WHITE BLOOD COUNT 5.9 10^3/uL (4.0-10.5)
[2017-07-04 12:07] LABS: APPEARANCE,URINE SLIGHTLY-CLOUDY; BILIRUBIN,URINE NEGATIVE (NEGATIVE); COLOR,URINE YELLOW; GLUCOSE, URINE NEGATIVE (NEGATIVE); KETONES,URINE NEGATIVE (NEGATIVE); LEUKOCYTE ESTERASE,URINE NEGATIVE (NEGATIVE); NITRITE,URINE NEGATIVE (NEGATIVE); PROTEIN,URINE NEGATIVE (NEGATIVE); URINE SPECIFIC GRAVITY 1.016; UROBILINOGEN,URINE NEGATIVE mg/dL (<2.0)
[2017-07-04 12:24] LABS: ALANINE AMINOTRANSFERASE 23 U/L (9-52); ALBUMIN 4.3 g/dL (3.5-5.0); ALKALINE PHOSPHATASE 81 U/L (38-126); ANION GAP 10 (5-19); ASPARTATE AMINO TRANSFERASE 22 U/L (14-36); BILIRUBIN,DIRECT 0.3 mg/dL (0.0-0.4); BILIRUBIN,TOTAL 0.3 mg/dL (0.2-1.3); BLOOD UREA NITROGEN 9 mg/dL (7-20); CALCIUM 9.8 mg/dL (8.4-10.2); CARBON DIOXIDE 28 mmol/L (22-30); CHLORIDE 107 mmol/L (98-107); CREATINE KINASE 431 U/L (30-135); GLUCOSE 95 mg/dL (75-110); POTASSIUM 4.3 mmol/L (3.6-5.0); SODIUM 144.9 mmol/L (137-145); TOTAL PROTEIN 7.1 g/dL (6.3-8.2)
[2017-07-04 12:33] LABS: TROPONIN I < 0.012 ng/mL
[2017-07-04 13:17] VITALS: BP 106/71
--- NOTE | 2017-07-05 09:11 | EKG REPORT ---
SEVERITY:- NORMAL ECG - SINUS RHYTHM : Confirmed by: Hank Alaniz 05-Jul-2017 09:10:26
== END 2017-07-04 13:17 | disposition home or self-care (01) ==
LOC: ER 10:07
DX: R07.9 Chest pain, unspecified (principal); R06.00 Dyspnea, unspecified; R07.81 Pleurodynia; F17.200 Nicotine dependence, unspecified, uncomplicated
CPT/HCPCS: 36415; 71046; 80053; 81001; 82550; 82553; 84484; 84703; 85025; 85379; 93005; 93010; 99284

== ENCOUNTER 2018-02-17 18:16 | Emergency (ER) | payer OTHER, MEDICAID ==
[2018-02-17 18:22] VITALS: BP 129/82
[2018-02-17] MEDS ORDERED: ACETAMINOPHEN 325 MG TABLET PO ONE (19:43)
[2018-02-17] MEDS ORDERED: IBUPROFEN 600 MG TABLET PO ONE (19:43)
--- NOTE | 2018-02-17 19:48 | ER Document Report ---
HPI - HPI Patient complains to provider of: low back pain Onset: Yesterday Pain Level: 3 Context: 37 yo female c/o low back pain that started when lifting 2 cases of water. [place] a pull. No radiculopathy, no saddle anesthesia, no fever, no hx cancer or IV drug use. Associated Symptoms: None Exacerbated by: Movement Relieved by: Denies - ROS ROS below otherwise negative: Yes Systems Reviewed and Negative: Yes All other systems reviewed and negative - REPRODUCTIVE Reproductive: DENIES: : Past Medical History - General Information source: Patient - Social History Smoking Status: Unknown if Ever Smoked Lives with: Family Family History: Reviewed & Not Pertinent Neurological Medical History: Reports: Hx Migraine Renal/ Medical History: Denies: Hx Peritoneal Dialysis Psychiatric Medical History: Reports: Hx Anxiety, Hx Depression Past Surgical History: Reports: Hx Tonsillectomy - Immunizations Immunizations up to date: Yes Hx Diphtheria, Pertussis, Tetanus Vaccination: Yes - 10/10/2011 Vertical Provider Document - CONSTITUTIONAL Agree With Documented VS: Yes Exam Limitations: No Limitations General Appearance: No Apparent Distress - INFECTION CONTROL TRAVEL OUTSIDE OF THE [place] IN LAST 30 DAYS: No - NECK Neck: Supple - RESPIRATORY Respiratory: Breath Sounds Normal, No Respiratory Distress - CARDIOVASCULAR Cardiovascular: Regular Rate, Regular Rhythm - GI/ABDOMEN Gastrointestinal: Abdomen Soft, Abdomen Non-Tender, No Organomegaly - BACK Back: Normal Inspection. negative: CVA Tenderness-Right, CVA Tenderness-Left Notes: tender lumbar paraspinal muscles - MUSCULOSKELETAL/EXTREMETIES Musculoskeletal/Extremeties: MAEW, FROM - NEURO Level of Consciousness: Awake Motor/Sensory: No Motor Deficit, No Sensory Deficit Deep Tendon Reflexes: 2+ - reji ankle and patellar - DERM Integumentary: No Rash Course - Vital Signs Vital signs: Temp Pulse Resp BP Pulse Ox 98.2 F 80 16 129/82 H 100 02/17/18 18:21 02/17/18 18:21 02/17/18 18:21 02/17/18 18:21 02/17/18 18:21 Discharge - Discharge Clinical Impression: right low back strain Condition: Good Disposition: HOME, SELF-CARE Instructions: Acetaminophen, Ibuprofen (General) ([facility]), Low Back Pain ([facility]), Muscle Relaxers ([facility]), Muscle Strain ([facility]), Warm Packs ([facility]) Additional Instructions: warm compress tylenol up to 4000 mg per day for pain motrin 600mg up to three times per day for pain to ER if worse Prescriptions: Ibuprofen [Motrin 600 mg Tablet] 600 mg PO Q8HP PRN #30 tablet PRN Reason: Cyclobenzaprine HCl [Flexeril 10 Mg Tablet] 10 mg PO TIDP PRN #20 tablet PRN Reason: Forms: Return to Work
== END 2018-02-17 20:10 | disposition home or self-care (01) ==
LOC: ER 18:16
DX: S39.012A Strain of muscle, fascia and tendon of lower back, initial encounter (principal); X50.0XXA Overexertion from strenuous movement or load, initial encounter
CPT/HCPCS: 99283

== ENCOUNTER 2019-06-24 14:53 | Emergency (ER) | payer SELFPAY ==
--- NOTE | 2019-06-24 16:10 | ER Document Report ---
ED ENT - General Chief Complaint: Sore Throat Stated Complaint: SORE THROAT Time Seen by Provider: 06/24/19 16:00 Primary Care Provider: [facility] [Provider Group] - Follow up as needed [facility] [Provider Group] - Follow up as needed [facility] [Provider Group] - Follow up as needed Mode of Arrival: Ambulatory Information source: Patient Notes: 38-year-old female presented to ED for cough cold congestion sore throat sinus drainage with pain. She states is been for about 3 days. She states sometimes she feels like she has a fever at night but not during the day. She is alert oriented respirations regular and unlabored speaking in full sentences. She states her son did recently have strep. Patient does smoke a pack a day does not drink alcohol or use any drugs. TRAVEL OUTSIDE OF THE [place] IN LAST 30 DAYS: No - HPI Patient complains to provider of: Throat problem, Other Onset: Other - 3 days Onset/Duration: Gradual Quality of pain: Achy Severity: Moderate Pain Level: 3 Context: Recent Illness Location of pain: Nose, Sinus, Throat Associated symptoms: Chills, Congestion, Cough, Fever, Runny nose, Sinus pain, Sinus drainage, Sore throat Similar symptoms previously: Yes Recently seen / treated by doctor: No - Related Data Allergies/Adverse Reactions: No Known Allergies Allergy (Verified 10/13/16 14:39) Past Medical History - General Information source: Patient - Social History Smoking Status: Current Every Day Smoker Cigarette use (# per day): Yes - Pack per day Smoking Education Provided: Yes - 4 minutes Frequency of alcohol use: None Drug Abuse: None Lives with: Family Family History: Reviewed & Not Pertinent Patient has suicidal ideation: No Patient has homicidal ideation: No - Past Medical History Cardiac Medical History: Reports: None Pulmonary Medical History: Reports: None EENT Medical History: Reports: None Neurological Medical History: Reports: Hx Migraine Endocrine Medical History: Reports: None Renal/ Medical History: Reports: None Malignancy Medical History: Reports: None GI Medical History: Reports: None Musculoskeletal Medical History: Reports None Skin Medical History: Reports None Psychiatric Medical History: Reports: Hx Anxiety, Hx Depression Traumatic Medical History: Reports: None Infectious Medical History: Reports: None Past Surgical History: Reports: Hx Tonsillectomy - Immunizations Immunizations up to date: Yes Hx Diphtheria, Pertussis, Tetanus Vaccination: Yes - 10/10/2011 Review of Systems - Review of Systems Constitutional: Chills, Fever, Recent illness EENT: Nose congestion, Nose discharge, Sinus pressure, Sinus discharge, Throat pain Cardiovascular: No symptoms reported Respiratory: Cough Gastrointestinal: No symptoms reported Genitourinary: No symptoms reported Female Genitourinary: No symptoms reported Musculoskeletal: No symptoms reported Skin: No symptoms reported Hematologic/Lymphatic: No symptoms reported Neurological/Psychological: No symptoms reported -: Yes All other systems reviewed and negative Physical Exam - Vital signs Vitals: Temp Pulse Resp BP Pulse Ox 98.3 F 78 15 125/84 98 06/24/19 15:25 06/24/19 15:25 06/24/19 15:25 06/24/19 15:25 06/24/19 15:25 Interpretation: Normal - General General appearance: Appears well, Alert - HEENT Head: Normocephalic, Atraumatic Eyes: Normal Pupils: PERRL Ears: Normal External canal: Normal Tympanic membrane: Normal Sinus: Mastoid, Maxillary, Tenderness Nasal: Purulent discharge, Swelling Mouth/Lips: Normal Pharynx: Post nasal drainage Neck: Normal - Respiratory Respiratory status: No respiratory distress Chest status: Nontender Breath sounds: Normal, Nonproductive cough Chest palpation: Normal - Cardiovascular Rhythm: Regular Heart sounds: Normal auscultation Murmur: No - Abdominal Inspection: Normal Distension: No distension Bowel sounds: Normal Tenderness: Nontender Organomegaly: No organomegaly - Back Back: Normal, Nontender - Extremities General upper extremity: Normal inspection, Nontender, Normal color, Normal ROM, Normal temperature General lower extremity: Normal inspection, Nontender, Normal color, Normal ROM, Normal temperature, Normal weight bearing. No: Glynn's sign - Neurological Neuro grossly intact: Yes Cognition: Normal Orientation: AAOx4 [place] Coma Scale Eye Opening: Spontaneous [place] Coma Scale Verbal: Oriented [place] Coma Scale Motor: Obeys Commands [place] Coma Scale Total: 15 Speech: Normal Motor strength normal: LUE, RUE, LLE, RLE Sensory: Normal - Psychological Associated symptoms: Normal affect, Normal mood - Skin Skin Temperature: Warm Skin Moisture: Dry Skin Color: Normal Course - Re-evaluation Re-evalutation: 06/24/19 22:11 After performing a Medical Screening Examination, I estimate there is LOW risk for ACUTE CORONARY SYNDROME, RESPIRATORY FAILURE, SEPSIS OR MENINGITIS, thus I consider the discharge disposition reasonable. I have reevaluated this patient multiple times and no significant life threatening changes are noted. The p atient and I have discussed the diagnosis and risks, and we agree with discharging home with close follow-up. We also discussed returning to the Emergency Department immediately if new or worsening symptoms occur. We have discussed the symptoms which are most concerning (e.g., changing or worsening pain, trouble swallowing or breathing, neck stiffness, fever) that necessitate immediate return. - Vital Signs Vital signs: Temp Pulse Resp BP Pulse Ox 98.0 F 81 16 116/77 100 06/24/19 18:32 06/24/19 18:32 06/24/19 18:32 06/24/19 18:32 06/24/19 18:32 - Diagnostic Test Radiology reviewed: Image reviewed, Reports reviewed Discharge - Discharge Clinical Impression: Sore throat (viral) URI (upper respiratory infection) Qualifiers: URI type: unspecified viral URI Qualified Code(s): J06.9 - Acute upper respiratory infection, unspecified Condition: Stable Disposition: HOME, SELF-CARE Additional Instructions: SORE THROAT: Sore throats may be caused by viruses, bacteria, or fungi. Most are due to a virus, and must get better on their own. Bacterial sore throats, particularly those due to "strep," need treatment with antibiotics. If an antibiotic is prescribed, be sure to take the medication for a full 10 days. Failure to take the antibiotic can result in complications such as rheumatic fever. Sometimes, an injection of antibiotics is given instead of pills or liquid. This single "shot" is equal in effectiveness to the oral medication. To relieve symptoms, take acetaminophen for pain. Sip clear liquids frequently, or eat popsicles or ice chips. Anesthetic sprays or lozenges may help. Make sure the air in the room is not too dry. Avoid using decongestants or antihistamines. Call the doctor if there is no improvement in two days, or if you have difficulty breathing, increasing throat pain, high fever, rash, or frequent vomiting. UPPER RESPIRATORY ILLNESS: You have a viral infection of the respiratory passages -- a "cold." This common infection causes nasal congestion, drainage, and often sore throat and cough. It is highly contagious. The disease usually lasts about 10 to 14 days. There is no "cure" for the viral infection -- it must run its course. If there is a complication, such as bacterial infection in the nose, sinuses, middle ear, or bronchial tubes, antibiotics may be required. The antibiotics won't affect the virus. Drink plenty of fluids. A humidifier may help. An expectorant medication or decongestant may make you more comfortable. Use acetaminophen or ibuprofen for fever or aches. See the doctor if fever persists over two days, if there is any significant worsening of your symptoms, or if you simply fail to improve as expected. You have been recommended treatment with Claritin 10 mg Sudafed 30 mg and Mucinex 600 mg. These are all [id number] medications for cough cold congestion. You do need to call the go to the pharmacist to get the Sudafed from behind the counter please get a little red pills they are more effective. You could also use Flonase which is [id number] 1 spray each nostril twice a day. You could also use salt soda solution gargles. These will help to remove the drainage from the back your throat. Chloraseptic spray was [id number] that will also help with your sore throat. Salt and soda solution gargle 1 quart of water 1 tablespoon of salt 1 teaspoon of baking soda Mixed 3 ingredients together and boil for 1 minute Placed in a covered quart jar Use 1/2 ounce of cold solution to gargle 3 times a day USE OF ACETAMINOPHEN (Tylenol): Acetaminophen may be taken for pain relief or fever control. It's much safer than aspirin, offering a wider range of "safe" dosages. It is safe during . Some brand names are Tylenol, Panadol, Datril, Anacin 3, Tempra, and Liquiprin. Acetaminophen can be repeated every four hours. The following are maximum recommended dosages: >89 pounds or adults 650 mg to 900 mg Acetaminophen can be repeated every four hours. Maximum dose not to exceed 4000 mg a day. SMOKING: If you smoke, you should stop smoking. The tar and chemicals in cigarette smoke are harmful. Smoking has been shown to cause: emphysema chronic bronchitis lung cancer mouth and throat cancer stomach and pancreas cancer premature aging defects In addition, smoking increases ear and lung infections in children of smokers. FOLLOW-UP CARE: If you have been referred to a physician for follow-up care, call the physicians office for an appointment as you were instructed or within the next two days. If you experience worsening or a significant change in your symptoms, notify the physician immediately or return to the Emergency Department at any time for re-evaluation. Forms: Smoking Cessation Education Referrals: [facility] [Provider Group] - Follow up as needed [facility] [Provider Group] - Follow up as needed [facility] [Provider Group] - Follow up as needed
[2019-06-24 16:36] LABS: A TYPE INFLUENZA AG NEGATIVE (NEGATIVE)
[2019-06-24 16:37] LABS: B INFLUENZA AG NEGATIVE (NEGATIVE)
--- NOTE | 2019-06-24 16:52 | RADIOLOGY REPORT (SQ) ---
EXAM DESCRIPTION: CHEST 2 VIEWS COMPLETED DATE/TIME: 06/24/2019 4:32 pm REASON FOR STUDY: cough congestion COMPARISON: PA and lateral views of the chest from 07/04/2017. EXAM PARAMETERS: NUMBER OF VIEWS: Two views. TECHNIQUE: PA and lateral views of the chest were obtained.. RADIATION DOSE: NA LIMITATIONS: none FINDINGS: LUNGS AND PLEURA: No consolidation, pleural effusion or pneumothorax. MEDIASTINUM AND HILAR STRUCTURES: No mediastinal or hilar contour abnormality. HEART AND VASCULAR STRUCTURES: The cardiac silhouette and pulmonary vasculature are within normal victor its. BONES: No acute findings. HARDWARE: None in the chest. OTHER: No other finding. IMPRESSION: No acute cardiopulmonary process. TECHNICAL DOCUMENTATION: JOB ID: [id number] [employer]- All Rights Reserved Reading location - IP/workstation name: [email or web address]
[2019-06-24 18:33] VITALS: BP 116/77
== END 2019-06-24 18:46 | disposition home or self-care (01) ==
LOC: ER 14:53
DX: J02.8 Acute pharyngitis due to other specified organisms (principal); B97.89 Other viral agents as the cause of diseases classified elsewhere; R05 Cough; R50.9 Fever, unspecified; R09.82 Postnasal drip; J34.89 Other specified disorders of nose and nasal sinuses; R09.81 Nasal congestion; R09.89 Other specified symptoms and signs involving the circulatory and respiratory systems; F17.210 Nicotine dependence, cigarettes, uncomplicated; Z20.818 Contact with and (suspected) exposure to other bacterial communicable diseases
CPT/HCPCS: 71046; 87070; 87804; 87880; 99283; 99406

== ENCOUNTER 2019-08-12 12:15 | Emergency (ER) | payer SELFPAY ==
[2019-08-12 12:25] VITALS: BP 127/88
--- NOTE | 2019-08-12 12:27 | ER Document Report ---
HPI - HPI Time Seen by Provider: 08/12/19 12:26 Onset: Other - This 38-year-old female presented to the emergency room today after putting her right hand through a glass window accidentally. Associated Symptoms: None Exacerbated by: Denies Similar symptoms previously: No Recently seen / treated by doctor: No - REPRODUCTIVE Reproductive: DENIES: : Past Medical History - General Information source: Patient - Social History Smoking Status: Never Smoker Cigarette use (# per day): No Chew tobacco use (# tins/day): No Smoking Education Provided: No Family History: Reviewed & Not Pertinent Neurological Medical History: Reports: Hx Migraine Psychiatric Medical History: Reports: Hx Anxiety, Hx Depression Past Surgical History: Reports: Hx Tonsillectomy - Immunizations Immunizations up to date: Yes Hx Diphtheria, Pertussis, Tetanus Vaccination: Yes - 10/10/2011 Vertical Provider Document - CONSTITUTIONAL Agree With Documented VS: Yes - INFECTION CONTROL TRAVEL OUTSIDE OF THE [place] IN LAST 30 DAYS: No - HEENT HEENT: Atraumatic, Conjuctival Injection, Normocephalic, PERRLA, Tympanic Membrane Bulging - NECK Neck: Normal Inspection - RESPIRATORY Respiratory: Breath Sounds Normal - DERM Integumentary: Warm, Dry Course - Vital Signs Vital signs: Temp Pulse Resp BP Pulse Ox 97.8 F 75 16 127/88 H 99 08/12/19 12:23 08/12/19 12:23 08/12/19 12:23 08/12/19 12:23 08/12/19 12:23 Procedures - Laceration/Wound Repair Left Hand Wound length (cm): 4 Wound's Depth, Shape: Superficial Laceration pre-procedure: Sterile PPE donned, Sterile drapes applied, Shur-Clens applied Anesthetic type: 1% Lidocaine Wound explored: Clean, Foreign body removed Wound Debrided: Moderate Wound Repaired With: Sutures Suture Size/Type: 4:0, Ethilon Number of Sutures: 4 Discharge - Discharge Clinical Impression: Laceration Condition: Good Disposition: HOME, SELF-CARE Instructions: Laceration Care ([facility]) Additional Instructions: Keep area clean and dry sutures must stay in place for 7 to 10 days follow-up PMD in 2 days for reevaluation return removal of sutures here with PMD in 7 to 10 days.
[2019-08-12] MEDS ORDERED: LIDOCAINE 1% INJ (10 MG/ML) 10 ML MDV INJ ONE (12:37)
--- NOTE | 2019-08-12 12:49 | RADIOLOGY REPORT (SQ) ---
EXAM DESCRIPTION: HAND RIGHT 3 VIEWS COMPLETED DATE/TIME: 08/12/2019 12:37 pm REASON FOR STUDY: fb laceration ulnar aspect of the right hand COMPARISON: None. EXAM PARAMETERS: NUMBER OF VIEWS: Three views. TECHNIQUE: AP, lateral and oblique radiographic images acquired of the right hand. LIMITATIONS: None. FINDINGS: MINERALIZATION: Normal. BONES: No acute fracture or dislocation. No worrisome bone lesions. JOINTS: No effusions. SOFT TISSUES: 4 mm radiopaque foreign body at the base of the 4th finger soft tissues. Laceration ov er the ulnar aspect of the hand without other retained foreign body. OTHER: No other significant finding. IMPRESSION: 4 mm radiopaque glass fragment along the dorsum of the base right 4th finger. TECHNICAL DOCUMENTATION: JOB ID: [id number] 2010 [employer]- All Rights Reserved Reading location - IP/workstation name: [email or web address]
== END 2019-08-12 13:17 | disposition home or self-care (01) ==
LOC: ER 12:15
DX: S61.411A Laceration without foreign body of right hand, initial encounter (principal); W25.XXXA Contact with sharp glass, initial encounter
CPT/HCPCS: 99283

== ENCOUNTER → 2020-03-14 | Outpatient (CLI) | payer OTHER ==
[2020-03-14 09:26] LABS: ABSOLUTE EOSINOPHILS # (AUTO) 0.4 10^3/uL (0.0-0.6); ABSOLUTE LYMPHOCYTES (AUTO) 2.3 10^3/uL (0.5-4.7); ABSOLUTE MONOCYTES (AUTO) 0.4 10^3/uL (0.1-1.4); ABSOLUTE NEUT (AUTO) 3.3 10^3/uL (1.7-8.2); BASOPHILS % (AUTO) 0.7 % (0-2); EOSINOPHILS % (AUTO) 5.6 % (0-6); HEMATOCRIT 37.9 % (36.0-47.0); LYMPHOCYTES % (AUTO) 35.7 % (13-45); MEAN CORPUSCULAR HGB CONC 34.3 g/dL (32.0-36.0); MEAN CORPUSCULAR VOLUME 90 fl (80-97); MONOCYTES % (AUTO) 5.9 % (3-13); PLATELET COUNT 404 10^3/uL (150-450); RED CELL DISTRIBUTION WIDTH 13.6 % (11.5-14.0); SEGMENTED NEUTROPHILS % (AUTO) 52.1 % (42-78); TOTAL CELLS COUNTED % (AUTO) 100 %; WHITE BLOOD COUNT 6.3 10^3/uL (4.0-10.5)
[2020-03-14 09:52] LABS: ALBUMIN 4.3 g/dL (3.5-5.0); ALKALINE PHOSPHATASE 88 U/L (38-126); ANION GAP 9 (5-19); ASPARTATE AMINO TRANSFERASE 24 U/L (14-36); BILIRUBIN,DIRECT 0.3 mg/dL (0.0-0.4); BILIRUBIN,TOTAL 0.5 mg/dL (0.2-1.3); BLOOD UREA NITROGEN 11 mg/dL (7-20); CALCIUM 9.7 mg/dL (8.4-10.2); CARBON DIOXIDE 27 mmol/L (22-30); CHLORIDE 107 mmol/L (98-107); CHOLESTEROL 146.82 mg/dL (0-200); GLUCOSE 93 mg/dL (75-110); POTASSIUM 4.5 mmol/L (3.6-5.0); TOTAL PROTEIN 7.1 g/dL (6.3-8.2); TRIGLYCERIDES 64 mg/dL (<150)
[2020-03-14 10:03] LABS: DIRECT LDL 105 mg/dL (<100)
== END ==
LOC: CCC 08:36
PROVIDERS: ATTEND Internal Medicine
DX: Z00.00 Encounter for general adult medical examination without abnormal findings (principal)
CPT/HCPCS: 36415; 80053; 80061; 83036; 84443; 85025